=== PATIENT | female | born 2005 | race Two or more races ===

== ENCOUNTER 2025-08-19 18:30 | Emergency (ER) | payer OTHER ==
[~2025-08-19] VITALS: Ht 162.6 cm; Wt 63.5 kg
[2025-08-19 18:37] VITALS: BP 118/78; O2SAT 99
[2025-08-19] MEDS ORDERED: ONDANSETRON HCL 2 MG/ML VIAL IV STA (20:14)
[2025-08-19] MEDS ORDERED: FAMOTIDINE/PF 20 MG/2 ML VIAL IV STA (20:14)
[2025-08-19] MEDS ORDERED: 0.9 % SODIUM CHLORIDE 1,000 ML IV ONE (20:15)
[2025-08-19] MEDS ORDERED: ONDANSETRON HCL 2 MG/ML VIAL ONE (20:42)
[2025-08-19] MEDS ORDERED: FAMOTIDINE/PF 20 MG/2 ML VIAL ONE (20:42)
[2025-08-19 21:28] LABS: BASO % 0.4 % (0.1-1.2); EOS # 0.05 (0.04-0.54); EOS % 0.4 % (0.7-7.0); LYMPH # 1.42 (1.18-3.74); LYMPH % 10.5 % (19.3-53.1); MEAN PLATELET VOLUME 9.40 fl (9.4-12.4); MONO # 0.91 (0.24-0.82); MONO % 6.7 % (4.7-12.5); NEUT # 11.05 (1.56-6.13); NEUT % 81.8 % (34.0-71.1); RED CELL DISTRIBUTION WIDTH 12.6 % (11.6-14.4)
[2025-08-19 22:06] LABS: ALT/SGPT 40.0 U/L (12-78); AST/SGOT 20.0 U/L (15-37); BILIRUBIN TOTAL 0.96 mg/dL (0.3-1.2); BUN CREA RATIO 25.0 (7.0-25.0); CREATININE SERUM 0.61 mg/dL (0.55-1.02); GFR 126.35; GLOBULINA 3.6 G/DL (2.4-3.5); GLUCOSE FASTING 97.0 mg/dL (65-100); OSMOLALITY SERUM 284.0 MOSM/KG (275-295)
[2025-08-19] MEDS ORDERED: KETOROLAC TROMETHAMINE 30 MG VIAL IU STA (22:55)
[2025-08-19] MEDS ORDERED: CEFTRIAXONE SODIUM 1,000 MG VIAL IV STA (23:01)
[2025-08-19] MEDS ORDERED: METHYLPREDNISOLONE SOD SUCC 125 MG VIAL IV STA (23:01)
[2025-08-19] MEDS ORDERED: CEFTRIAXONE SODIUM 1,000 MG VIAL ONE (23:50)
[2025-08-19] MEDS ORDERED: KETOROLAC TROMETHAMINE 30 MG VIAL ONE (23:50)
[2025-08-19] MEDS ORDERED: METHYLPREDNISOLONE SOD SUCC 125 MG VIAL ONE (23:50)
[2025-08-20] MEDS ORDERED: INTESTINEX680 M1 PO (00:08)
== END 2025-08-20 00:05 | disposition home or self-care (01) ==
LOC: ER 18:31 → EMR PED 18:31
PROVIDERS: Pediatrics
DX: J02.8 Acute pharyngitis due to other specified organisms (principal)